=== PATIENT | female | born 1950 | race Caucasian/White ===

== ENCOUNTER → 2016-08-21 | Outpatient (CLI) | payer MEDICARE, OTHER ==
[~2016-08-21] VITALS: Ht 162.6 cm; Wt 49.0 kg
[2016-08-21] VITALS (9 sets, daily range): BP systolic 109–153; BP diastolic 52–76
[~2016-08-21] MED LIST: AMLO5TAB2 PO; ASPI-482 PO; ASPIRIN ENTERIC COATED 81 MG TABLET.DR. PO SCH; Aspirin PO; CHLO25TA PO; CLOP75TA PO; CLOPIDOGREL BISULFATE 75 MG TABLET PO SCH; CLOPIDOGREL BISULFATE 75 MG TABLET PO STA; CONTRAST GIVEN MC PRN; FENTANYL PF 100 MCG/2 ML VIAL. IV ONE; FENTANYL PF 100 MCG/2 ML VIAL. ONE; HEPARIN for ARTERIAL LINE 1,500 ML ONE; HEPARIN for IV BOLUS 10,000 UNIT/10 ML VIAL. IV ONE; HEPARIN for IV BOLUS 10,000 UNIT/10 ML VIAL. ONE; Hydrocodone/Acetaminophen PO; IODIXANOL 320 MG/ML 100 ML VIAL. IART ONE; IODIXANOL 320 MG/ML 100 ML VIAL. ONE; IOHEXOL 300 MG/ML 100ML VIAL. ONE; IV NORMAL SALINE 250ML 250 ML IV ONE; LEVO100T5 PO; LEVO88TA4 PO; LIDOCAINE 1% / SOD BICARB 8.4% 20 ML VIAL. IJ ONE; METO50TA2 PO; MIDAZOLAM HCL 2 MG/2 ML VIAL. IV ONE; MIDAZOLAM HCL 2 MG/2 ML VIAL. ONE; NITROGLYCERIN 200 MCG/2 ML SYRINGE FOR CATH/VASC LAB. IART ONE; SIMV20TA PO
[2016-08-21 07:38] LABS: CALCIUM 9.8 mg/dL (8.5-10.1); POTASSIUM 3.2 mmol/L (3.5-5.1)
[2016-08-21 07:44] LABS: BASO # 0.1 x10^3/uL (0.0-0.2); BASO % 1 % (0-3); EOS % 1 % (0-3); HEMATOCRIT 34.9 % (36.0-47.0); HEMOGLOBIN 11.3 g/dL (12.0-15.5); LYMPH # 1.7 x10^3/uL (1.0-4.8); LYMPH % 18 % (24-48); MEAN CORPUSCULAR HEMOGLOBIN 30 pg (25-35); MEAN CORPUSCULAR HGB CONC 32 g/dL (31-37); MEAN CORPUSCULAR VOLUME 94 fL (79-100); MONO % 11 % (0-9); NEUT % 70 % (31-73); PLATELET COUNT 259 x10^3/uL (140-400); RED BLOOD COUNT 3.72 x10^6/uL (3.50-5.40); RED CELL DISTRIBUTION WIDTH 12.8 % (11.5-14.5); WHITE BLOOD COUNT 9.5 x10^3/uL (4.0-11.0)
[2016-08-21 07:58] LABS: PROTHROMBIN TIME PATIENT 12.6 SEC (11.7-14.0)
--- NOTE | 2016-08-21 10:20 | PDOC ---
MODERATE SEDATION ASSESSMENT RISKS/ALTERNATIVES Risks/Alternatives Risks and alternatives of this type of sedation and procedure discussed with: RISK/ALTERNATIVES: Patient H & P ON CHART H & P H & P on chart and reviewed for co-morbid conditions and appropriate labs. H&P ON CHART: Yes STATUS PREG STATUS ASSESSED: N/A MEDS/ALLERGIES REVIEWED Meds/Allergies Reviewed Medications and Allergies including time and route of recently administered narcotics and sedatives. MEDS/ALLERGIES REVIEWED: Yes ASA RATING ASA RATING: II AIRWAY ASSESSMENT Airway Assessment Airway patency, oral function limitations, presence of caps, crowns, dentures, partials, and ability to extend neck assessed. AIRWAY ASSESSMENT: Yes MALLAMPATI SCORE MALLAMPATI SCORE: II PRE-SEDATION ASSESSMENT PRE-SEDATION ASSESSMENT: Yes NEW JENNINGS MD Aug 21, 2016 10:20
--- NOTE | 2016-08-21 10:24 | PDOC1 ---
History and Physical Date of Procedure Date of Admission 08/21/16 Procedure Procedure Bilateral selective renal arteriogram, with possible FISH TRAPPER/stent. Indication Indication 66 YO female with CKD and with hypertension, on CCB, BB, and diuretic. Diagnostic arteriogram with possible renal artery stenting requested by Nephrology. Past Medical History Past Medical History See Nursing Pre Procedure PMH Past Surgical History Past Surgical History See Nursing Pre procedure PSH Current Medications Current Medications Current Medications Iohexol (Omnipaque 300 Mg/ml) 100 ml STK-MED ONCE .ROUTE ; Start 08/21/16 at 07: 58; Stop 08/21/16 at 07:59; Status DC Lidocaine/Sodium Bicarbonate 20 ml 20 ml STK-MED ONCE IJ ; Start 08/21/16 at 07: 58; Stop 08/21/16 at 07:59; Status DC Heparin Sodium/ Sodium Chloride 1,500 ml @ As Directed STK-MED ONCE .ROUTE ; Start 08/21/16 at 07:58; Stop 08/21/16 at 07:59; Status DC Iodixanol (Visipaque 320) 100 ml STK-MED ONCE .ROUTE ; Start 08/21/16 at 08:02; Stop 08/21/16 at 08:03; Status DC Fentanyl Citrate (Fentanyl 2ml Vial) 100 mcg STK-MED ONCE .ROUTE ; Start at 08:17; Stop 08/21/16 at 08:18; Status DC Midazolam HCl (Versed) 2 mg STK-MED ONCE .ROUTE ; Start 08/21/16 at 08:17; Stop 08/21/16 at 08:18; Status DC Fentanyl Citrate (Fentanyl 2ml Vial) 100 mcg STK-MED ONCE .ROUTE ; Start at 08:33; Stop 08/21/16 at 08:34; Status DC Midazolam HCl (Versed) 2 mg STK-MED ONCE .ROUTE ; Start 08/21/16 at 08:33; Stop 08/21/16 at 08:34; Status DC Heparin Sodium/ Sodium Chloride 1,000 unit 1X ONCE IART Last administered on t 09:46; Start 08/21/16 at 08:45; Stop 08/21/16 at 08:51; Status DC Lidocaine/Sodium Bicarbonate (Buffered Lidocaine 1%) 20 ml 1X ONCE IJ Last administered on 08/21/16t 09:47; Start 08/21/16 at 08:45; Stop 08/21/16 at 08:51 ; Status DC Midazolam HCl (Versed) 2 mg 1X ONCE IV Last administered on 08/21/16 09:48; Start 08/21/16 at 08:45; Stop 08/21/16 at 08:51; Status DC Fentanyl Citrate (Fentanyl 2ml Vial) 100 mcg 1X ONCE IV Last administered on 09:47; Start 08/21/16 at 08:45; Stop 08/21/16 at 08:51; Status DC Iodixanol 100 ml 100 ml 1X ONCE IART Last administered on 08/21/16 09:46; Start 08/21/16 at 08:45; Stop 08/21/16 at 08:51; Status DC Sodium Chloride (Iv Sodium Chloride 0.9% 250ml) 250 ml @ 250 mls/hr 1X ONCE IV Last administered on 08/21/16 08:30; Start 08/21/16 at 08:45; Stop at 09:44; Status DC Info (Do NOT chart on this entry -- for MONITORING) 1 each PRN DAILY PRN MC SEE COMMENTS; Start 08/21/16 at 09:00; Stop 08/23/16 at 08:59 Heparin Sodium (Porcine) 10,000 unit STK-MED ONCE .ROUTE ; Start 08/21/16 at 08: 54; Stop 08/21/16 at 08:55; Status DC Nitroglycerin (Nitroglycerin) 400 mcg 1X ONCE IART Last administered on 09:48; Start 08/21/16 at 09:30; Stop 08/21/16 at 09:31; Status DC Heparin Sodium (Porcine) 5,000 unit 1X ONCE IV Last administered on 08/21/16 09:49; Start 08/21/16 at 09:30; Stop 08/21/16 at 09:31; Status DC Active Scripts Active Zocor (Simvastatin) 20 Mg Tablet 20 Mg PO HS Reported Amlodipine Besylate 5 Mg Tablet 5 Mg PO DAILY Chlorthalidone 25 Mg Tablet 1 Tab PO DAILY Levothyroxine Sodium 88 Mcg Tablet 1 Tab PO DAILY Metoprolol Tartrate 50 Mg Tablet 1 Tab PO BID Allergies Allergies: Coded Allergies: No Known Drug Allergies (Unverified , 03/29/15) Physical Exam Vital Signs Vital Signs Date Time Temp Pulse Resp B/P Pulse Ox O2 Delivery O2 Flow Rate FiO2 08/21/16 10:08 81 16 96 Room Air 08/21/16 07:27 98.1 153/76 98.1 Lungs: Clear to auscultation Heart: Regular rate Psych/Mental Status: Mental status NL Assessment Assessment 66 YO female with CKD and hypertension on 3 BP meds. Problems: Plan Plan Bilateral renal arteriogram +/- intervention, as requested by Renal. NEW JENNINGS MD Aug 21, 2016 10:24
--- NOTE | 2016-08-21 12:18 | PDOC ---
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 significant renal artery stenosis Post-Procedure Diagnosis Post-Procedure Diagnosis Approximately 60% right HEATHER. Only mild left HEATHER. Procedure Performed Procedure Performed Bilateral selective renal arteriogram Right renal artery stent Type of Anesthesia Type of Anesthesia Local + Mod sedation Estimated Blood Loss EBL: 50 cc Condition of Patient Condition of Patient Stable. No apparent complication. Disposition Disposition Home from [facility] post recovery, if no problems. F/u with Dr Hoyt. Full report to follow. Rx DAPT x 2 months, followed by daily ASA indefinitely. NWE JENNINGS MD Aug 21, 2016 12:18
--- NOTE | 2016-08-24 10:06 | RAD ---
Selective bilateral renal arteriogram Right renal artery stent placement Indication: 66-year-old female with chronic kidney disease and with hypertension, on 3 blood pressure medications. Diagnostic angiography, with possible intervention, has been requested by nephrology. Fluoroscopy time: 27.8 minutes Kerma-area Product: 203 Gycm2 Contrast material: 122 cc Visipaque 320 Anesthesia: 34 minutes moderate sedation was provided utilizing a total of 3 mg Versed and 150 mcg fentanyl, IV. The patient was appropriately monitored by a qualified independent observer throughout the time of moderate sedation. Consent: The procedure was explained in its entirety to the patient and/or the patient's designated unit support representative by a member of the treatment team. This included a discussion of risks and benefits and commonly accepted alternatives to the procedure, as well as expected consequences of no treatment at all. Discussion of risks included, but was not limited to, those that are most frequent and those that are rare, but possibly severe or life-threatening, as well as the possibility of unforeseen complications. Sterility: All elements of maximal sterile barrier technique were utilized, including cap, mask, sterile gown, sterile gloves, large sterile sheet, appropriate hand hygiene, and 2% chlorhexidine for cutaneous antisepsis. Procedure: Informed consent was obtained from the patient. She was placed supine on the angiography table. Preliminary ultrasound examination of right groin revealed wide patency of right common femoral artery, which was documented with a single hard copy ultrasound image. Right groin was then prepped and draped in the usual sterile fashion, utilizing all elements of maximal sterile barrier technique, as described above. Moderate sedation was provided with IV Versed and fentanyl. Using aseptic technique, local anesthesia, direct ultrasound guidance, and the micropuncture system, a 5 Malay right common femoral artery sheath was successfully introduced. Right renal arteriogram: A 5 Malay Sos catheter was inserted through the right groin sheath and was utilized to selectively cannulate right renal artery. Visipaque was injected and DSA images were obtained. Findings: Irregular eccentric plaquing produces approximately 60% proximal right renal artery stenosis. Right renal artery is otherwise widely patent. There is no angiographic evidence of fibromuscular dysplasia. No intrarenal arterial aneurysm or vascular malformation was demonstrated. No renal infarct or hypervascular mass was detected. Right renal vein is patent. Right renal artery stent placement: Due to this patient's history, percutaneous stenting of her 60% right renal artery stenosis was considered indicated. The Sos catheter was removed through the 5 Malay right groin sheath, which was then exchanged over a guidewire for a 6 Malay Abdoul 2 sheath. The Sos catheter was then reintroduced through the Abdoul sheath, and was again utilized to selectively cannulate right renal artery. 5000 heparin was given bolus IV. A total of 200 mcg nitroglycerin was given in divided doses through the Sos catheter into right renal artery. The Abdoul sheath was then advanced to origin of right renal artery over the Sos catheter, which was then removed over a 0.0 1 8-in [place] slam microguidewire. A 5 mm x 15 mm Palmaz Blue balloon expandable stent was then introduced through the Abdoul sheath and was positioned across proximal right renal artery. Right renal artery arises from anterolateral aspect of aorta, therefore, stent placement was performed in the ICELANDIC projection. Utilizing magnification fluoroscopic guidance and control contrast injections through the Abdoul sheath, the stent was carefully deployed across the proximal right renal artery stenosis. No post dilatation was performed. Completion DSA images revealed only mild residual eccentric narrowing, without dissection, thrombosis, or distal embolization. Left renal arteriogram: The Sos catheter was then introduced through the Abdoul sheath and was utilized to selectively cannulate left renal artery. Visipaque was injected and DSA images were obtained. Findings: There is minor, approximately 20% eccentric narrowing at proximal left renal artery. Left renal artery is otherwise widely patent. There is no evidence of fibromuscular dysplasia. No intrarenal aneurysm or vascular malformation was demonstrated. There was no evidence of renal infarct or hypervascular mass. Left renal vein is patent. Patient tolerated the procedure well without apparent complication. Hemostasis was achieved at the right groin puncture site utilizing the the Angio-Seal closure system. Impression: 1. Approximately 60% eccentric narrowing of proximal right renal artery stenosis, for which successful, uneventful percutaneous stenting was performed. 2. Only minimal eccentric narrowing of proximal left renal artery.
== END | disposition home or self-care (01) ==
LOC: INTRAD 06:54
PROVIDERS: ATTEND Internal Medicine Nephrology
DX: I12.9 Hypertensive chronic kidney disease with stage 1 through stage 4 chronic kidney disease, or unspecified chronic kidney disease (principal); N18.9 Chronic kidney disease, unspecified; I70.1 Atherosclerosis of renal artery; I63.9 Cerebral infarction, unspecified; E03.9 Hypothyroidism, unspecified
CPT/HCPCS: 36252; 36415; 37236; 76937; 80048; 85027; 85610; C1713; C1760; C1769; C1892; C1894; G0269; J2250; J3010; J3490; J7050; J7030

== ENCOUNTER → 2021-10-24 | Outpatient (CLI) | payer MEDICARE, OTHER ==
[2016-08-21 12:25] VITALS: BP 115/52
[~2021-10-24] MED LIST changes: +AMLO-186 PO; -AMLO5TAB2 PO; -ASPIRIN ENTERIC COATED 81 MG TABLET.DR. PO SCH; -CHLO25TA PO; +CHLO25TA10 PO; -CLOPIDOGREL BISULFATE 75 MG TABLET PO SCH; -CLOPIDOGREL BISULFATE 75 MG TABLET PO STA; -CONTRAST GIVEN MC PRN; -FENTANYL PF 100 MCG/2 ML VIAL. IV ONE; -FENTANYL PF 100 MCG/2 ML VIAL. ONE; -HEPARIN for ARTERIAL LINE 1,500 ML ONE; -HEPARIN for IV BOLUS 10,000 UNIT/10 ML VIAL. IV ONE; -HEPARIN for IV BOLUS 10,000 UNIT/10 ML VIAL. ONE; -IODIXANOL 320 MG/ML 100 ML VIAL. IART ONE; -IODIXANOL 320 MG/ML 100 ML VIAL. ONE; -IOHEXOL 300 MG/ML 100ML VIAL. ONE; -IV NORMAL SALINE 250ML 250 ML IV ONE; -LIDOCAINE 1% / SOD BICARB 8.4% 20 ML VIAL. IJ ONE; -METO50TA2 PO; +METO50TA6 PO; -MIDAZOLAM HCL 2 MG/2 ML VIAL. IV ONE; -MIDAZOLAM HCL 2 MG/2 ML VIAL. ONE; -NITROGLYCERIN 200 MCG/2 ML SYRINGE FOR CATH/VASC LAB. IART ONE
--- NOTE | 2021-10-24 17:07 | CARD ---
MR#: [id number] Date of Study: 10/24/2021 Ordering Physician: JEROMY BURNS, Referring Physician: JEROMY BURNS, Tech: [facility] APPROVED REPORT EXAM: Two-dimensional and M-mode echocardiogram with Doppler and color Doppler. Other Information Quality : GoodHR: 55bpm Rhythm : NSR INDICATION Hypertension/HCVD RISK FACTORS Hypertension 2D DIMENSIONS Left Atrium(2D)3.6 (1.6-4.0cm)IVSd0.7 (0.7-1.1cm) Aortic Root(2D)3.1 (2.0-3.7cm)LVDd4.3 (3.9-5.9cm) LVOT Diameter1.8 (1.8-2.4cm)PWd0.8 (0.7-1.1cm) LVDs2.6 (2.5-4.0cm)FS (%) 39.5 % SV57.0 ml Aortic Valve AoV Peak Luciano.106.3cm/sAoV VTI23.9cm AO Peak GR.4.5mmHgLVOT Peak Luciano.109.5cm/s LVOT VTI 21.57cmAO Mean GR.2mmHg DILLON (VMAX)2.28hb4QJU (VTI)2.33cm2 Mitral Valve MV E Aekbvjqa99.0cm/sMV DECEL [id number] MV A Xppgncgq05.1cm/sMV [id number] E/A Ratio1.5MVA (PHT)5.72cm2 TDI E/Lateral E'9.0E/Medial E'11.0 Pulmonary Valve PV Peak Bblzdayy46.8cm/sPV Peak Grad.2mmHg Tricuspid Valve TR P. Nkoghpad665wj/sTR Peak Gr.19mmHg Pulmonary Vein S1 Arnufmxd88.6cm/sD2 Tdxfkqjw46.7cm/s LEFT VENTRICLE The left ventricle is normal size. There is normal left ventricular wall thickness. Left ventricular systolic function is normal. The left ventricular ejection fraction is within the normal range. The E jection Fraction is 55-60%. No regional wall motion abnormalities noted. The left ventricular diastol ic function is normal. No left ventricle thrombus noted on this study. There is no ventricular septal defect visualized. There is no left ventricular aneurysm. There is no mass noted in the left ventric le. RIGHT VENTRICLE The right ventricle is normal size. There is normal right ventricular wall thickness. The right ventr icular systolic function is normal. ATRIA The left atrium size is normal. The right atrium is borderline dilated. The interatrial septum is int act with no evidence for an atrial septal defect or patent foramen ovale as noted on 2-D or Doppler i maging. AORTIC VALVE The aortic valve is normal in structure and function. No aortic regurgitation is present. There is no aortic valvular stenosis. There is no aortic valvular vegetation. MITRAL VALVE The mitral valve is normal in structure and function. There is no evidence of mitral valve prolapse. There is no mitral valve stenosis. Doppler and Color-flow revealed trace to mild mitral regurgitation . TRICUSPID VALVE The tricuspid valve is normal in structure and function. Doppler and Color Flow revealed trace tricus pid regurgitation. There is no tricuspid valve prolapse or vegetation. There is no tricuspid valve st enosis. PULMONIC VALVE The pulmonary valve is normal in structure and function. Doppler and Color Flow revealed no pulmonic valvular regurgitation. There is no pulmonic valvular stenosis. GREAT VESSELS The aortic root is normal in size. The ascending aorta is normal in size. The pulmonary artery is nor mal. The IVC is normal in size and collapses >50% with inspiration. PERICARDIAL EFFUSION There is no pleural effusion. The pericardium appears normal. Critical Notification Critical Value: No <Conclusion> The left ventricle is normal size. Left ventricular systolic function is normal. The Ejection Fraction is 55-60%. No aortic regurgitation is present. There is no aortic valvular stenosis. Doppler and Color-flow revealed trace to mild mitral regurgitation. Doppler and Color Flow revealed trace tricuspid regurgitation. Signed by : Jaylon Cortes MD Electronically Approved : 10/24/2021 17:07:34
== END ==
LOC: ECHO 14:35
PROVIDERS: ATTEND Internal Medicine Cardiovascular Disease
DX: I34.0 Nonrheumatic mitral (valve) insufficiency (principal); I10 Essential (primary) hypertension
CPT/HCPCS: 93306; C8929